=== PATIENT | female | born 1960 | race Caucasian/White ===

== ENCOUNTER 2016-06-23 10:27 | Emergency (ER) | payer OTHER ==
[2016-06-23 10:36] VITALS: TEMP 98.1
--- NOTE | 2016-06-23 10:57 | EDPHY ---
H & P Time Seen by Provider: 06/23/16 10:37 HPI/ROS: CHIEF COMPLAINT: Right wrist pain HISTORY OF PRESENT ILLNESS: Patient is a 55-year-old female who presents to the emergency department after FOOSH last night. The patient states she was looking of asencio. She stepped off the curb landing on her hand. She now complains of right wrist pain. It is moderate. It is worse with movement. It does not extend up the arm. She has no elbow, humerus or shoulder pain. She did not strike her head or sustain other injuries. REVIEW OF SYSTEMS: My complete review of systems is negative except as mentioned in the HPI. Past Medical/Surgical History: Right shoulder surgery, left wrist fracture Smoking Status: Never smoked Physical Exam: Vitals noted General Appearance: Alert and no distress. Head: Pupils equal. Normal. Respiratory: No respiratory distress. Cardiac: regular rate and rhythm. Extremities: patient's right upper extremity, wrist and hand appear normal. The patient has tenderness palpation over the medial aspect of her wrist. She also has discomfort in her anatomical snuffbox. Patient's metacarpals are nontender. Her fingers are atraumatic. No proximal radius or ulnar tenderness palpation. Skin: No rashes or lesions. Neuro: Alert. Normal mood and affect. Constitutional: Initial Vital Signs Temperature (C) 36.7 C 06/23/16 10:33 Heart Rate 78 06/23/16 10:33 Respiratory Rate 17 06/23/16 10:33 Blood Pressure 138/83 H 06/23/16 10:33 O2 Sat (%) 93 06/23/16 10:33 O2 Delivery Mode Room Air Allergies/Adverse Reactions: No Known Allergies Allergy (Verified 06/23/16 10:32) Home Medications: Medication Instructions Recorded Citalopram 06/23/16 Medical Decision Making - Diagnostics Imaging Results: Imaging Impressions Wrist X-Ray 06/23/16 10:41 Impression: There is no acute fracture identified. If there is a high clinical concern regarding an occult carpal fracture, conservative management and short-term repeat radiographic follow-up in 7-14 days is recommended. Procedures: Velcro thumb spica splint placed by medical laboratory technical officer. Post splint placement the patient was neurovascularly intact distally. ED Course/Re-evaluation: In the emergency department I discussed possible etiologies with the patient. I answered all her questions. She consented to an x-ray of her right wrist. Right wrist x-ray: No acute disease noted. Please refer the dictated report by the radiologist. I discussed the result with the patient. I answered all her questions. She was given warnings prior to leaving. She was placed in a thumb spica splint. She will keep that in place until she follows with Dr. Mederos. Differential Diagnosis: My differential includes but is not limited to fracture, dislocation, contusion , sprain Departure - Departure Disposition: Home, Routine, Self-Care Clinical Impression: Wrist pain, acute Qualifiers: Laterality: right Qualified Code(s): M25.531 - Pain in right wrist Condition: Good Instructions: Wrist Injury (ED) Additional Instructions: Keep your splint in place. You need close follow-up with Dr. Mederos. Referrals: Bettye Hand MD [Primary Care Provider] - As per Instructions Fabio Mederos MD [Medical Doctor] - 5-7 days, call for appt.
[2016-06-23 12:22] VITALS: BP 131/84; PULSE 65; RESP 16; O2SAT 92
== END 2016-06-23 12:21 | disposition home or self-care (01) ==
DX: S69.91XA Unspecified injury of right wrist, hand and finger(s), initial encounter (principal); W18.39XA Other fall on same level, initial encounter; Y99.8 Other external cause status

== ENCOUNTER → 2016-07-04 | Outpatient (CLI) | payer OTHER | LOC: FIMAGING 11:21 | PROVIDERS: ATTEND Internal Medicine | DX: Z12.31 Encounter for screening mammogram for malignant neoplasm of breast (principal) | CPT/HCPCS: G0202 ==

== ENCOUNTER 2016-12-13 20:27 | Emergency (ER) | payer OTHER ==
[2016-12-13 20:31] VITALS: TEMP 98.6
[2016-12-13] MEDS ORDERED: OXYCODONE/APAP 5/325 TAB PO ONE (20:54)
--- NOTE | 2016-12-13 21:00 | EDPHY ---
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 When patient was exiting the garage, she tripped over the ladder accidentally and fell into the bushes using her right hand to stop her fall. She felt immediate pain in her right wrist but was still able to move it. She denies LOC/head injury/neck pain. She went to the house and applied ice and took ibuprofen. Over the next several hours, this swelling continued to worsen. She reports pain only when moving her wrist. She is right -hand dominant. Modifying Factors: See above Comment: ROS: see HPI Constitutional: No fever, no chills, no weight loss Eyes: No blurred vision Respiratory: No shortness of breath, no cough Cardiovascular: No chest pain Gastrointestinal: No nausea, no vomiting no diarrhea Genitourinary: No dysuria Extremities: No myalgias Neurologic: No weakness, no numbness Skin: No rashes Hematologic: No bruising, no bleeding MEDICAL/SURGICAL/SOCIAL HISTORY: Medical history: Generally healthy. Does not take any regular medications. Surgical history: Right shoulder surgery Social history: CONSTITUTIONAL: Pleasant adult white female, awake and alert, no obvious distress HEENT: Atraumatic and normocephalic. NECK: supple, no midline tenderness, flexion 45 degrees, extension 45 degrees, right and left lateral flexion 45 degrees. No meningismus. Cardiovascular: Normal S1/S2, regular rate, regular rhythm, without murmur rub or gallop. PULMONARY/CHEST: Symmetrical and nontender. no crepitus. Clear to auscultation bilaterally. Good air movement. No accessory muscle usage. ABDOMEN: Soft, nondistended, nontender, no ecchymosis. PELVIC: no pain with rocking; bilateral hips flexion 125 degrees, extension 30 degrees, with no pain internal rotation and no pain external rotation. BACK: No midline tenderness, no paraspinous spasm, deep tendon reflexes 2/2, no pain with straight leg raise EXTREMITIES: 2/2 pulses, right WRIST: Decreased extension to 30, decreased flexion to 40, radial deviation to 10 degree, ulnar deviation to 10, no scaphoid tenderness, no tenderness over ulnar styloid, + tenderness over radial styloid, lower forearm deformity appreciated; no clubbing, no cyanosis or edema. NEUROLOGICAL: no focal neuro deficits. GCS 15. Light touch sensation intact. SKIN: Warm and dry, no erythema. no rash. Good capillary refill. Source: Patient Exam Limitations: No limitations - Medical/Surgical History Hx Asthma: No Hx Chronic Respiratory Disease: No Hx Diabetes: No Hx Cardiac Disease: No Hx Renal Disease: No Hx Cirrhosis: No Hx Alcoholism: No Hx HIV/AIDS: No Hx Splenectomy or Spleen Trauma: No Other PMH: r shoulder surg - Social History Smoking Status: Never smoked Constitutional: Initial Vital Signs Temperature (C) 37 C 12/13/16 20:30 Heart Rate 82 12/13/16 20:30 Respiratory Rate 18 12/13/16 20:30 Blood Pressure 157/86 H 12/13/16 20:30 O2 Sat (%) 92 12/13/16 20:30 O2 Delivery Mode Room Air Allergies/Adverse Reactions: No Known Allergies Allergy (Verified 12/13/16 20:29) Home Medications: Medication Instructions Recorded Citalopram 06/23/16 oxyCODONE/APAP 5/325 [Percocet 1 - 2 tab PO Q4H PRN #12 tab 12/13/16 5/325 (*)] Medical Decision Making - Diagnostics Imaging Results: Imaging Impressions Forearm X-Ray 12/13/16 20:40 Impression: 1. Intact shaft of the radius and ulna. 2. Acute minimally angulated distal radius fracture. Wrist X-Ray 12/13/16 20:53 Impression: Acute minimally angulated distal radius fracture. Procedures: Procedure: Splint placement. A right volar wrist splint was applied by the Emergency Room radiation / chemistry technician After application of the splint I returned and re-examined the patient. The splint was adequately immobilizing the joint and distal to the splint the patient's circulation and sensation was intact. ED Course/Re-evaluation: Forearm and wrist x-rays obtained Given p.o. Percocet and patient politely declined No signs of neurovascular compromise/tenting of skin/compartment syndrome/ extremities and joints examined above and below area of concern and are neurovascularly intact. X-ray my read via PAC shows distal radial nondisplaced fracture Placed in a volar splint Rice therapy, pain control, Ortho follow-up Differential Diagnosis: Differential diagnosis includes but is not limited to radial fracture, ulnar fracture, scaphoid fracture, nerve injury, wrist sprain, contusion, ligament injury. - Data Points Medications Given: Discontinued Medications Oxycodone/Acetaminophen (Percocet 5/325) 1 tab PO EDNOW ONE Stop: 12/13/16 20:55 Last Admin: 12/13/16 21:11 Dose: Not Given Departure - Departure Disposition: Home, Routine, Self-Care Clinical Impression: Closed fracture of right distal radius Qualifiers: Encounter type: initial encounter Fracture morphology: unspecified fracture morphology Qualified Code(s): S52.501A - Unspecified fracture of the lower end of right radius, initial encounter for closed fracture Condition: Good Instructions: Wrist Fracture in Adults (ED) Additional Instructions: Keep splint dry and in place until seen by Orthopedics. Take ibuprofen 600 mg every 6-8 hours with food as needed for pain. Apply ice for 30 minutes at a time; 2-3 times per day for the next 1-2 days. You may use Percocet every 4 hours as needed for breakthrough pain. Follow up with Orthopedics in 3-5 days at which time they will evaluate and recommend with you if conservative management versus surgery is indicated. Referrals: Ricky Day MD [Medical Doctor] - As per Instructions Prescriptions: oxyCODONE/APAP 5/325 [Percocet 5/325 (*)] 1 - 2 tab PO Q4H PRN #12 tab PRN Reason: Pain, Severe
[2016-12-13 22:28] VITALS: BP 131/81; PULSE 74; RESP 16; O2SAT 93
== END 2016-12-13 22:46 | disposition home or self-care (01) ==
PROC: 2W3CX1Z Immobilization of Right Lower Arm using Splint (ICD-10-PCS; principal; 2016-12-13)
DX: S52.501A Unspecified fracture of the lower end of right radius, initial encounter for closed fracture (principal); W01.0XXA Fall on same level from slipping, tripping and stumbling without subsequent striking against object, initial encounter; Y92.009 Unspecified place in unspecified non-institutional (private) residence as the place of occurrence of the external cause; Y99.8 Other external cause status; Y93.89 Activity, other specified

== ENCOUNTER → 2017-08-04 | Outpatient (CLI) | payer OTHER | LOC: FIMAGING 11:36 | PROVIDERS: ATTEND Internal Medicine | DX: Z12.31 Encounter for screening mammogram for malignant neoplasm of breast (principal) ==